=== PATIENT | male | born 1945 | race Caucasian/White ===

== ENCOUNTER → 2017-06-20 | Day surgery (SDC) | payer MEDICARE ==
[~2017-06-20] MED LIST: ASPI-110 PO; ASPI81CH CHEW; BUPIVACAINE/EPINEPHRINE 0.5% PF 10 ML VIAL ONE; CENTTAB PO; KETOROLAC TROMETHAMINE 30 MG/ML (IVP) VIAL IV PUSH ONE; LACTATED RINGER'S 1000 ML INJ 1,000 ML ONE; LOSA50TA PO; METO25TA6 PO; MIDAZOLAM HCL 2 MG/2 ML VIAL ONE; OMEGCAP PO; ONDANSETRON HCL 4 MG/2 ML VIAL IV PUSH ONE; PROPOFOL 200 MG/20 ML AMP IV ONE; ROSU20 PO; TRAZ50TA12 PO; VANCOMYCIN HCL 1000 MG VIAL ONE; ZOLP10TA3 PO
--- NOTE | 2017-06-20 14:13 | TN ---
cc: LEA ECHEVERRIA M.D. DATE OF SURGERY: 06/20/2017 PREOPERATIVE DIAGNOSIS Left inguinal hernia. POSTOPERATIVE DIAGNOSIS Left inguinal hernia. PROCEDURE Open repair left inguinal hernia with mesh. SURGEON Dr. Lea Echeverria ATTRACTION WORKER Violet Reyes, MS III ANESTHESIA General. INDICATIONS This is a pleasant 71-year-old gentleman with previous history of radical prostatectomy who has developed a left inguinal hernia over the three weeks prior to initial evaluation. He had a vacation where he did a lot of hiking and lifting heavy things and has developed an increasing size bulge and discomfort in the left groin. Physical exam demonstrated findings suggestive of a left inguinal hernia. Plans were made for operative repair. INTRAOPERATIVE FINDINGS Indirect inguinal hernia. Small spermatic cord lipoma excised and discarded. Weak inguinal floor. ESTIMATED BLOOD LOSS Minimal. DESCRIPTION OF PROCEDURE IN DETAIL The patient was identified as Narciso Arenas, taken to the operating room and placed in supine position. Sequential compression devices were placed on bilateral lower extremities. Following induction of adequate general anesthesia with a laryngeal mask, the left groin was prepped and draped in the usual sterile fashion with Betadine. A timeout procedure was performed. Following completion of the timeout procedure to everyone's satisfaction within the room, the proposed left groin incision was made with a marking pen. It was infiltrated with local anesthetic and the incision carried out with a scalpel. Hemostasis was controlled with electrocautery. Dissection continued posteriorly through Perla's fascia down to the level of the external oblique fascia. More local anesthetic was placed beneath the external oblique fascial fibers which were opened in their direction using a scalpel and Metzenbaum scissor. Underlying ilioinguinal and iliohypogastric nerves were identified and avoided. The spermatic cord and its contents were from surrounding tissues at the level of the pubic tubercle and isolated with a Tower drain. Anterior cremasteric fibers were divided with electrocautery. A small spermatic cord lipoma was released from surrounding tissues, ligated at its base with 2-0 Vicryl ligature and redundant fatty tissue amputated. Preperitoneal fatty tissue was protruding through the indirect inguinal hernia defect; this was reduced. The inguinal floor was examined and it was fairly weak. A 3 x 6 inch piece of Atrium ProLite mesh was selected, cut to an appropriate size, customized for the patient, and sutured in position to reinforce the inguinal floor and to cover the indirect defect. The mesh was held in place with interrupted 0 Ethibond sutures placed above and below the pubic tubercle, Bernardino's ligament and the shelving edge of the inguinal ligament inferiorly and laterally and to the internal oblique fascia superiorly and medially. Care was taken to avoid entrapment of the iliohypogastric nerve superiorly and medially. Tails were cut into the mesh laterally to allow for passage of the spermatic cord. The tails were re-approximated lateral to the spermatic cord with 0 Ethibond suture and tails were tucked beneath the external oblique fascia. The mesh nicely covered the internal inguinal ring. The wound was irrigated copiously with saline. There was no evidence of bleeding. The remaining local anesthetic was placed within the spermatic cord and the operative field. The external oblique fascia was then closed in a running fashion with 2-0 Vicryl suture taking care to avoid entrapping any nerves. Perla's fascia was approximated with 2-0 Vicryl. The skin was approximated with running 4-0 Monocryl subcuticular suture. Dressings were applied with Mastisol, half-inch brown Steri-Strips and Tegaderm over a 4x4. The patient tolerated the procedure without apparent complication. Sponge, needle and instrument counts were correct at the end of the case. MD ABDULAZIZ Parisi/BRENDA /1:54 PM /2:07 PM
== END | disposition home or self-care (01) ==
LOC: ESDC 10:27
PROVIDERS: ATTEND Surgery Trauma Surgery
DX: K40.90 Unilateral inguinal hernia, without obstruction or gangrene, not specified as recurrent (principal); D17.6 Benign lipomatous neoplasm of spermatic cord
CPT/HCPCS: 00830; 49505; C1781; J1885; J2250; J2405; J3010; J3370; J7120